=== PATIENT | female | born 2000 | race African-American/Black ===

== ENCOUNTER → 2024-02-18 06:41 | Day surgery (SDC) | payer BC, SELFPAY | LOC: GI 06:41 | PROVIDERS: ATTENDING PHYSICIAN Internal Medicine Gastroenterology | DX: D50.9 Iron deficiency anemia, unspecified (principal); K64.8 Other hemorrhoids | CPT/HCPCS: 45380; 88305 ==

== ENCOUNTER → 2024-07-23 12:01 | Outpatient (REF) | payer BC, SELFPAY ==
[2024-07-23 12:42] LABS: % Basophils 0.7 % (0-2); % Eosinophils 0.9 % (0-6); % Immature Granulocytes 0.3 % (0-0.5); % Monocytes 8.8 % (1.7-9.3); % Neutrophils 61.3 % (42.2-75.2); Absolute Basophils 0.1 10^3/uL (0-0.2); Absolute Eosinophils 0.1 10^3/uL (0-0.7); Absolute Lymphocytes 2.1 10^3/uL (1.2-3.4); Absolute Monocytes 0.7 10^3/uL (0.1-0.6); Absolute Neutrophils 4.6 10^3/uL (1.4-6.5); Hematocrit 37.6 % (37.0-47.0); Hemoglobin 12.7 g/dL (12.0-16.0); Mean Corp Hgb Conc. 33.8 g/dL (33.0-37.0); Mean Corpuscular Hgb 26.1 pg (27.0-31.0); Mean Corpuscular Volume 77.4 fL (81.0-99.0); Mean Platelet Volume 9.2 fL (7.4-10.4); Nucleated Red Blood Cells % 0 %; Platelet Count 341 10^3/uL (130-400); Red Blood Cell Count 4.86 10^6/uL (4.20-5.40); Red Cell Dist. Width 14.4 % (11.5-14.5); White Blood Cell Count 7.5 10^3/uL (4.8-10.8)
[2024-07-23 12:56] LABS: ALT (SGPT) 20 U/L (0-35); AST (SGOT) 29 U/L (14-36); Albumin 4.3 g/dl (3.5-5.0); Alkaline Phosphatase 70 U/L (38-126); Blood Urea Nitrogen 10 mg/dl (7-17); Calcium 9.2 mg/dl (8.4-10.2); Carbon Dioxide 25 mmol/L (22-30); Chloride 104 mmol/L (98-107); Glucose 84 mg/dl (70-99); HDL Cholesterol 61 mg/dl; LDL Cholesterol, Calculated 81 mg/dl; Potassium 3.8 mmol/L (3.5-5.1); Sodium 140 mmol/L (135-145); Total Bilirubin 1.1 mg/dl (0.2-1.3); Total Cholesterol 150 mg/dl (50-199); Triglyceride 41 mg/dl (10-149); Very Low Density Lipoprotein 8 mg/dl (0-30); eGFR > 60.00
[2024-07-23 13:05] LABS: Total Iron Binding Capacity 303 ug/dl (265-497)
[2024-07-23 13:23] LABS: TSH 0.58 uIU/ml (0.47-4.68)
== END ==
LOC: REG 12:01
PROVIDERS: ATTENDING PHYSICIAN Nurse Practitioner
DX: Z00.01 Encounter for general adult medical examination with abnormal findings (principal); D50.9 Iron deficiency anemia, unspecified; Z13.220 Encounter for screening for lipoid disorders
CPT/HCPCS: 36415; 80053; 80061; 83550; 84443; 85025

== ENCOUNTER 2024-10-09 01:49 | Emergency (ER) | payer SELFPAY ==
[2024-10-09 01:53] VITALS: BP 113/77
--- NOTE | 2024-10-09 03:32 | ED.GENMED ---
History of Present Illness
<BATSHEVA Luna - Last Filed: 10/09/24 06:48>
General
Chief Complaint: Abdominal Symptoms
Source: patient
Exam Limitations: none
Time Seen by Provider: 10/09/24 03:31
Nursing documentation reviewed up to this point in time: agreed with
History of Present Illness
History of Present Illness:
Pt is a 23 yo F with PMH of anemia who presents to the ED with her father for n/v x 1 day. She states she woke up on 10/08/24 and felt nauseous and then vomited multiple times, but states it was non-bloody. She states her last episode of vomiting was
just prior to arrival at the ED. Since then, she has been unable to eat/drink because of the nausea and states she feels very weak and dehydrated. She admits that she ate leftover food that contained seafood on Thursday, but cannot think of
anything else that could have caused this. She also admits to multiple episodes of non-bloody diarrhea that she describes as 'watery.' She denies headache, dizziness, changes in vision, chest pain, dyspnea, abdominal pain, dysuria and sick contacts.
Review of Systems
<BATSHEVA Luna - Last Filed: 10/09/24 06:48>
Review of Systems
Constitutional: Reports fatigue; Denies fever, night sweats or chills
EENT: Denies sore throat or runny nose
Respiratory: Denies cough or trouble breathing
Cardiac: Denies chest pain or palpitations
ABD/GI: Reports nausea, vomiting and diarrhea; Denies abdominal pain or bloody stools
: Denies dysuria or flank pain
Musculoskeletal: Denies back pain
Neurological: Denies dizzy, headache, weakness or numbness
Phy Exam
<BATSHEVA Luna - Last Filed: 10/09/24 06:48>
General Physical Exam
General Presentation: well appearing and no apparent distress
General age: appears stated age
General Skin: warm and dry
General Habitus: normal
General Mental: alert
General Hydration: appears well hydrated
Cardiovascular Exam
Cardiovascular Exam: no murmur and tachycardia
Pulmonary Exam
Pulmonary Exam: lungs clear and no respiratory distress
Gastrointestinal Exam
Gastrointestinal Exam: normal bowel sounds, non tender, soft and non distended
Course
<Marycarmen Borden, [facility] - Last Filed: 10/09/24 06:48>
Orders/Labs/Results
Orders:
Orders
10/09/24 03:49
0.9% Sodium Chloride 1000 ml [Nss] 1,000 ml IV BOLUS
Ondansetron Injectable [Zofran] 4 mg IV NOW STA
10/09/24 03:50
Test Result ONCE
10/09/24 04:33
Complete Blood Count/With Diff Urgent
Comprehensive Metabolic Panel Urgent
HCG, Serum Qualitative Screen Urgent
10/09/24 06:53
Loperamide [Imodium] 2 mg PO NOW STA
Abnormal Lab Results
10/09/24
04:33
WBC 11.0 H 10^3/uL
(4.8-10.8)
MCV 76.6 L fL
(81.0-99.0)
MCH 24.4 L pg
(27.0-31.0)
MCHC 31.9 L g/dL
(33.0-37.0)
RDW 15.9 H %
(11.5-14.5)
Abs Immat Gran (auto) 0.1 H 10^3/uL
(0-0.05)
Absolute Neuts (auto) 9.7 H 10^3/uL
(1.4-6.5)
Absolute Lymphs (auto) 0.7 L 10^3/uL
(1.2-3.4)
Neutrophils % 88.1 H %
(42.2-75.2)
Lymphocytes % 5.9 L %
(20.5-51.1)
Carbon Dioxide 21 L mmol/L
(22-30)
10/09/24 04:33
10/09/24 04:33
Vital Signs
Initial and Last Documented VS:
Initial Vital Signs
Temp Pulse Resp BP Pulse Ox
98.0 F 115 18 113/77 100
10/09/24 01:53 10/09/24 01:53 10/09/24 01:53 10/09/24 01:53 10/09/24 01:53
Last Documented Vital Signs
Temp Pulse Resp BP Pulse Ox
98.7 F 81 16 116/62 99
10/09/24 07:14 10/09/24 07:14 10/09/24 07:14 10/09/24 07:14 10/09/24 07:14
<Beth Conte, DO - Last Filed: 10/09/24 08:00>
Orders/Labs/Results
Orders:
Orders
10/09/24 03:49
0.9% Sodium Chloride 1000 ml [Nss] 1,000 ml IV BOLUS
Ondansetron Injectable [Zofran] 4 mg IV NOW STA
10/09/24 03:50
Test Result ONCE
10/09/24 04:33
Complete Blood Count/With Diff Urgent
Comprehensive Metabolic Panel Urgent
HCG, Serum Qualitative Screen Urgent
10/09/24 06:53
Loperamide [Imodium] 2 mg PO NOW STA
Abnormal Lab Results
10/09/24
04:33
WBC 11.0 H 10^3/uL
(4.8-10.8)
MCV 76.6 L fL
(81.0-99.0)
MCH 24.4 L pg
(27.0-31.0)
MCHC 31.9 L g/dL
(33.0-37.0)
RDW 15.9 H %
(11.5-14.5)
Abs Immat Gran (auto) 0.1 H 10^3/uL
(0-0.05)
Absolute Neuts (auto) 9.7 H 10^3/uL
(1.4-6.5)
Absolute Lymphs (auto) 0.7 L 10^3/uL
(1.2-3.4)
Neutrophils % 88.1 H %
(42.2-75.2)
Lymphocytes % 5.9 L %
(20.5-51.1)
Carbon Dioxide 21 L mmol/L
(22-30)
10/09/24 04:33
10/09/24 04:33
Vital Signs
Initial and Last Documented VS:
Initial Vital Signs
Temp Pulse Resp BP Pulse Ox
98.0 F 115 18 113/77 100
10/09/24 01:53 10/09/24 01:53 10/09/24 01:53 10/09/24 01:53 10/09/24 01:53
Last Documented Vital Signs
Temp Pulse Resp BP Pulse Ox
98.7 F 81 16 116/62 99
10/09/24 07:14 10/09/24 07:14 10/09/24 07:14 10/09/24 07:14 10/09/24 07:14
<BATSHEVA Luna - Last Filed: 10/09/24 06:48>
MDM/Problems Addressed
Differential Diagnosis Includes:
gastroenteritis, appendicitis, kidney stones
<BATSHEVA Luna - Last Filed: 10/09/24 06:48>
*Critical Care Note
Total Time (30-74mins, 75-104mins- exclusive of procedures): Not Applicable
<Beth Conte DO - Last Filed: 10/09/24 08:00>
*Pulse Oximetry
Patient hypoxic: no
<BATSHEVA Luna - Last Filed: 10/09/24 06:48>
Update Note
Update Note:
10/09/24 @ 06:45am: Pt states nausea has subsided, is feeling 'a lot better'; giving pt water to attempt oral challenge; will continue to monitor
ED Attending Note
<BATSHEVA Luna - Last Filed: 10/09/24 06:48>
-
Portions of this chart may have been created with voice recognition software.� Occasional wrong word or��sound alike� substitutions may have occurred due to the inherent limitations of voice recognition software.
<Beth Conte DO - Last Filed: 10/09/24 08:00>
ED Attending Note
Patient seen and examined by attending physician: Yes
I performed the substantive portion of visit, reviewed & personally made and approve the management plan that is documented in note by myself or TY.: Yes
ED Attending Note:
This is a 23-year-old female with history of iron deficiency anemia who presents with 24-hour history of nausea, vomiting, diarrhea. She denies fever, denies hematemesis nor hematochezia. She mitts to generalized weakness and feeling that she is
dehydrated. Decreased oral intake since yesterday afternoon.
No history of similar episodes in the past and no known contacts with similar symptoms.
No recent travel. No recent antibiotic use.
Denies risk of .
GENERAL: Alert , in no apparent distress
EYE: pupils equal and reactive. anicteric
NECK: Supple, nontender, no meningismus, no significant adenopathy.
ENT: oral mucosa is minimally dry. No rhinorrhea.
CARDIAC: Regular rhythm, borderline tachycardic. No murmur.
LUNGS: Clear breath sounds bilaterally, no acute respiratory distress, no wheezes/rales/rhonchi
ABDOMEN: Soft, nondistended, without focal tenderness, no r/g, no cvat. normoactive BS.
NEUROLOGICAL: Alert and oriented x3, no focal neuro deficits.
SKIN: Warm and dry, normal color, skin intact. No rash.
MUSCULOSKELETAL: No C/C/E. peripheral pulses are full and equal b/l. No palpable tenderness.
PSYCH: Normal and appropriate interaction.
Concern for acute gastroenteritis. Abdominal exam is overall benign, small bowel obstruction is unlikely.
Concern for dehydration, electrolyte abnormality.
Will check labs, initiate IV fluids, give IV Zofran.
07:00
Patient feeling markedly improved.
Tolerating oral fluids.
Labs show mildly elevated white blood cell count. Normal H&H. Chemistries are unremarkable.
Will discharge to home with recommendations to limit diet to clear liquids over the next 24 hours then slowly advance as tolerated.
Prescription for Zofran has been provided.
Recommend Imodium for as needed diarrhea.
Follow-up with PCP.
Return precautions discussed.
Discharge Plan
Departure
Patient Disposition: Home (Routine Discharge)
Date of Disposition: 10/09/24
Time of Disposition: 07:02
Patient with high blood pressure during this ER visit?: No
Condition: Good
Discharge Problem:
Acute gastroenteritis
Instructions: Viral gastroenteritis in adults, Clear Liquid Diet
Prescriptions:
New
ondansetron 4 mg tablet,disintegrating
4 mg PO QID PRN (Reason: nausea and vomiting) Qty: 20 0RF
No Action
multivitamin [Multi-Day] 1 EACH tablet
1 ea PO Daily
Referrals:
Yarelis Salgado CRNP [Family Provider] - Call in 1-3 days for appt
Interventions
Interventions:
*Risk Screen - Suicide Last Done: 10/09/24 04:38
*General Assessment Last Done: 10/09/24 01:53
*Neglect/Abuse Screening Last Done: 10/09/24 04:38
ED- Fall Risk Assessment Last Done: 10/09/24 07:14
*ED COVID-19 Vaccine History Last Done: 10/09/24 01:53
*Nursing Disposition Last Done: 10/09/24 07:14
DQ-[id number] Assessment Last Done: 10/09/24 04:38
Discharge Date and Time
Discharge Date/Time: 10/09/24 07:16
Print Language: BELARUSIAN
[2024-10-09] MEDS: NSS 1000 IV (04:33)
[2024-10-09] MEDS: ZOFRAN 4 MG IV (04:35)
[2024-10-09 04:44] LABS: % Basophils 0.3 % (0-2); % Immature Granulocytes 0.5 % (0-0.5); % Lymphocytes 5.9 % (20.5-51.1); % Monocytes 5.2 % (1.7-9.3); % Neutrophils 88.1 % (42.2-75.2); Absolute Immature Granulocytes 0.1 10^3/uL (0-0.05); Absolute Lymphocytes 0.7 10^3/uL (1.2-3.4); Absolute Monocytes 0.6 10^3/uL (0.1-0.6); Absolute Neutrophils 9.7 10^3/uL (1.4-6.5); Hematocrit 38.9 % (37.0-47.0); Hemoglobin 12.4 g/dL (12.0-16.0); Mean Corp Hgb Conc. 31.9 g/dL (33.0-37.0); Mean Corpuscular Hgb 24.4 pg (27.0-31.0); Mean Corpuscular Volume 76.6 fL (81.0-99.0); Mean Platelet Volume 9.1 fL (7.4-10.4); Nucleated Red Blood Cells % 0 %; Platelet Count 344 10^3/uL (130-400); Red Blood Cell Count 5.08 10^6/uL (4.20-5.40); Red Cell Dist. Width 15.9 % (11.5-14.5)
[2024-10-09 04:53] LABS: HCG, Serum Qualitative Screen Negative
[2024-10-09 05:00] LABS: ALT (SGPT) 32 U/L (0-35); AST (SGOT) 36 U/L (14-36); Albumin 4.5 g/dl (3.5-5.0); Alkaline Phosphatase 78 U/L (38-126); Blood Urea Nitrogen 13 mg/dl (7-17); Calcium 9.4 mg/dl (8.4-10.2); Carbon Dioxide 21 mmol/L (22-30); Chloride 106 mmol/L (98-107); Glucose 96 mg/dl (70-99); Sodium 138 mmol/L (135-145); Total Protein 7.5 g/dl (6.3-8.2); eGFR > 60.00
[2024-10-09] MEDS: IMODIUM 2 MG PO (07:09)
[2024-10-09 07:14] VITALS: BP 116/62
== END 2024-10-09 07:16 | disposition home or self-care (01) ==
LOC: EMR 01:49
PROVIDERS: EMERGENCY PHYSICIAN Emergency Medicine; FAMILY PHYSICIAN Nurse Practitioner
DX: K52.9 Noninfective gastroenteritis and colitis, unspecified (principal); R11.2 Nausea with vomiting, unspecified; D50.9 Iron deficiency anemia, unspecified
CPT/HCPCS: 99284; 96374; 96361 ×3; 80053; 84703; 85025